=== PATIENT | female | born 1985 | race African-American/Black ===

== ENCOUNTER 2023-11-15 20:34 | Emergency (ER) | payer SELFPAY ==
[~2023-11-15] VITALS: Ht 172.7 cm; Wt 83.0 kg
[~2023-11-15 20:34] MED LIST: BC; HUMALOG; LANTUS
[2023-11-15 20:40] VITALS: BP 139/91; PULSE 99; RESP 16; TEMP 98.3; O2SAT 99
== END 2023-11-16 01:35 | disposition left against medical advice (07) ==
LOC: ER 20:34
DX: R10.9 Unspecified abdominal pain (principal); Z53.21 Procedure and treatment not carried out due to patient leaving prior to being seen by health care provider